=== PATIENT | female | born 1965 | race Caucasian/White ===

== ENCOUNTER 2022-10-27 13:17 | Outpatient (CLI) | payer OTHER, SELFPAY ==
[2022-10-27 15:12] LABS: INR 0.88 (0.91-1.10); Prothrombin Time 12.5 Seconds
[2022-10-27 15:13] LABS: Partial Thromboplastin Time* 28 Seconds (23-33)
[2022-10-27 15:20] LABS: Cholesterol* 256 mg/dL (90-199)
[2022-10-27 15:21] LABS: Glucose* 82 mg/dL (60-115); HDL Cholesterol* 100 mg/dL (>=50)
[2022-10-27 15:27] LABS: LDL Cholesterol Calculated 119 mg/dL (<100); Triglycerides* 183 mg/dL (40-149)
== END 2022-10-27 13:18 | disposition home or self-care (01) ==
LOC: NFLDREF 13:17
PROVIDERS: PCP Obstetrics & Gynecology; Visit Provider Obstetrics & Gynecology
DX: Z01.419 Encounter for gynecological examination (general) (routine) without abnormal findings (principal); Z13.1 Encounter for screening for diabetes mellitus; Z13.29 Encounter for screening for other suspected endocrine disorder; Z13.6 Encounter for screening for cardiovascular disorders
CPT/HCPCS: 80061; 82947; 84443; 85610; 85730

== ENCOUNTER 2023-01-02 10:57 | Emergency (ER) | payer OTHER, SELFPAY ==
[2023-01-02 11:15] VITALS: BP 105/58; PULSE 99; RESP 22; TEMP 36.9; O2SAT 98
--- NOTE | 2023-01-02 11:20 | ED.GENADULT ---
HPI - General Adult General Time Seen by Provider: 11:20 Date Seen: 01/02/23 Chief complaint: Nausea/Vomiting Stated complaint: Fell unconscious, dehydration Time Seen by Provider: 01/02/23 11:19 Source: patient, RN notes reviewed and old records reviewed Mode of arrival: ambulatory Limitations: no limitations History of Present Illness HPI narrative: Maida is a 57-year-old female coming in with nausea vomiting diarrhea, probable vasovagal episode overnight. She notes she did not feel well yesterday afternoon, actually took a nap before dinner. After dinner just again was not feeling very well, achy. She initially talk Johny turned, started to develop nausea vomiting diarrhea overnight. At 1 point overnight, was on the toilet having diarrhea and throwing up at the same time when her heard her hit the floor. She hit the right side of her face, had a bit of a fat lip from hitting the floor. Denies her teeth malocclusion. Is feeling extremely dizzy attempting to get up. She is not on any blood thinner. There has been no blood in the vomit or stool. One of her grand children has been sick. She has hot flashes overnight but states she felt hot and cold. Her Duncan woke her up on the bathroom floor, she remembers being irritated at him for waking her up in bed. Then she realized she was cold on the bathroom floor. If she moves the nausea feels worse, she is not vertiginous, has had a history of vertigo. She is achy in her back like muscle aches. She states she has not felt this sick since she was in sepsis when she was age 26. Was too sick to take her medications this morning. Review of her blood pressure from a visit in October was 102/70. She states her stomach symptoms seem to come in waves. Related Data Home Medications Medication Instructions Recorded Confirmed Lactobacills gasseri-Bifidobac cap PO QDAY 10/27/22 10/27/22 bifidum,longum 1.5 billion cell capsule ([employer]) cholecalciferol (vitamin D3) 25 25 mcg PO QDAY 10/27/22 10/27/22 mcg (1,000 unit) capsule epinephrine 0.3 mg/0.3 mL 0.3 mg IM ONCE 10/27/22 10/27/22 injection, auto-injector lorazepam 0.5 mg tablet 0.5 mg PO .Daily as needed PRN 10/27/22 10/27/22 multivitamin with iron 1 tab PO QDAY 10/27/22 10/27/22 omega-3 fatty acids 1,000 mg 1,000 mg PO QDAY 10/27/22 10/27/22 capsule Previous Rx's Medication Instructions Recorded buspirone 7.5 mg tablet 7.5 mg PO DAILY #90 tabs 10/27/22 estradiol 1 mg tablet 1 mg PO DAILY #90 tabs 10/27/22 progesterone micronized 100 mg 100 mg PO .Bedtime #90 caps 10/27/22 capsule ondansetron 4 mg disintegrating 4 mg PO Q6H PRN nausea and 01/02/23 tablet vomiting #20 tabs Allergies Allergy/AdvReac Type Severity Reaction Status Date / Time bee venom protein (honey bee) Allergy Severe Anaphylaxis Verified 10/27/22 13:34 Review of Systems Status of ROS: Reports: 10 or more systems reviewed and unremarkable except as noted in History and below [facility] Medical History Anxiety and depression ?F41.9 - Anxiety disorder, unspecified (ICD-10) ?F32.A - Depression, unspecified (ICD-10) DDD (degenerative disc disease) Fracture of phalanx of finger of right hand (12/14/20) ?S62.609A - Fracture of unspecified phalanx of unspecified finger, initial encounter for closed fracture (ICD-10) History of atrial fibrillation ?Z86.79 - Personal history of other diseases of the circulatory system (ICD-10) History of ecchymosis ?Z87.898 - Personal history of other specified conditions (ICD-10) History of vertebral compression fracture (~11/2013) ?Z87.81 - Personal history of (healed) traumatic fracture (ICD-10) On postmenopausal hormone replacement therapy ?Z79.890 - Hormone replacement therapy (ICD-10) UTI (urinary tract infection) (10/15/22) ?N39.0 - Urinary tract infection, site not specified (ICD-10) Surgical History History of 2 sections ?Z98.891 - History of uterine scar from previous surgery (ICD-10) History of arthroscopy of left knee (02/01/08) ?Z98.890 - Other specified postprocedural states (ICD-10) History of cardiac radiofrequency ablation (11/2016) ?Z98.890 - Other specified postprocedural states (ICD-10) History of colonoscopy (08/17/21) ?Z98.890 - Other specified postprocedural states (ICD-10) History of dilation and curettage (05/01/89) ?Z98.890 - Other specified postprocedural states (ICD-10) History of hand surgery (04/29/14) ?Z98.890 - Other specified postprocedural states (ICD-10) History of third molar tooth extraction (1984) ?K08.409 - Partial loss of teeth, unspecified cause, unspecified class (ICD-10) Family History Sister Down's syndrome Father Atrial fibrillation Hodgkin lymphoma High blood pressure Diabetes Heart disease Paternal Grandmother Stroke Paternal Grandfather Stomach cancer Alcohol dependence Mother High cholesterol Anxiety Depression Alcohol dependence Thyroid disease Maternal Grandmother High cholesterol Macular degeneration Brother Anxiety Depression Daughter Anxiety Daughter Anxiety Maternal Grandfather Heart disease Social History Narrative: Cis-gender, heterosexual woman Relationship status: . Spouse/Partner: Duncan Education: MD Occupation: Physician Tobacco: Lifetime nonsmoker E-cigarettes: No Alcohol: Yes: 1-2 servings/month Illicit/recreational drugs: No Safety concerns at home or work: No Dietary restriction(s): No Exercise: Yes, 1-2 times per week urination of cardio and weights Children: Nalini Araujo (Nando): Mario Ontiveros, expecting 03/2023, Lory (Josh). Smoking Status: Never smoker Do you use any of these nicotine containing products: None Second hand tobacco smoke exposure: No How often do you have a drink containing alcohol: monthly or less AUDIT-C Alcohol total score: 1 Non-prescribed substance use: denies use Little interest or pleasure in doing things: not at all Feeling down, depressed, or hopeless: not at all Exam Const: Vital Signs, click to edit/add: Vital Signs - 24 hr 01/02/23 11:15 01/02/23 11:23 Temperature 98.5 F Pulse Rate [Right Pulse Oximeter] 99 Respiratory Rate 22 Blood Pressure [Ri ght Upper Arm] 105/58 L Pulse Oximetry 98 100 Oxygen Delivery Me thod Room Air Documenting provider has reviewed patient's vital signs: yes Common normals: average body habitus, oriented x3, no limitations and alert General appearance: cooperative, well kempt, well developed and ill appearing Other: Maida is very pleasant 57-year-old female that is conversive, looks like she does not feel well however. HENMT: Common normals: normocephalic, head/scalp atraumatic, hearing grossly normal bilaterally, external nose normal, moist oral mucous membranes, oropharynx normal, dentition normal and gingiva normal Head and scalp: normocephalic and atraumatic Nose: external nose normal Eye: Common normals: EOMs intact bilaterally, conjunctivae normal and no scleral icterus Conjunctiva: conjunctiva(e) normal Other: Has right eye coloboma. Neck & C-Spine: Common normals: full ROM, no lymphadenopathy, supple, no meningeal signs and no JVD Resp: Common normals: normal respiratory effort, no retractions, no use of accessory muscles and clear to auscultation bilaterally Auscultation: clear to auscultation bilaterally Cardio: Common normals: no JVD, regular rate, regular rhythm, S1 normal heart sound, S2 normal heart sound, no gallops, no clicks and no murmurs Rate: regular rate Rhythm: regular rhythm Heart sounds: S1 normal and S2 normal GI: Common normals: Normal to inspection, nondistended, normoactive bowel sounds present, soft to palpation, non-tender, no hepatosplenomegaly and no masses Palpation: soft and no hepatosplenomegaly Neuro: Common normals: oriented x3 Sensorium/orientation: alert Meningeal signs: no meningeal signs Psych: Appearance: well kempt Course Course Hospital Course: This certainly sounds like a significant gastroenteritis but will consider other infectious etiologies. Will do a COVID. She will be on cardiac monitoring pulse oximetry, obtain EKG. Will initiate a L of IV fluids, 4 mg IV Zofran. Do not think she needs any imaging outside of head CT at this time. Reevaluation(s) Reevaluation #1: Recheck done Maida, provided a copy of her head CT. Reviewed that they did see some mild atherosclerotic change in the carotids, recommended a follow-up outpatient carotid ultrasound at some point. She is having a bit of a headache, nausea is improved. Still having body aches. We will try 15 mg IV Toradol. Have reviewed normal lactate, normal white blood count. Lab was in there getting a 2nd blood culture but I doubt that this is sepsis or bacterial. Time: 12:47 Reevaluation #2: Maida is feeling better, still feels ill with this but better. She had a large urine output. She would like to go home, does need more Zofran at home. Time: 14:21 Vital Signs Vital signs: Initial Vital Signs Temperature 98.5 F 01/02/23 11:15 Temperature Source Temporal Artery Scan 01/02/23 11:15 Pulse Rate 99 01/02/23 11:15 Pulse Rhythm Regular 01/02/23 11:15 Pulse Strength 3+ Normal 01/02/23 11:15 Respiratory Rate 22 01/02/23 11:15 Blood Pressure 105/58 L 01/02/23 11:15 Blood Pressure Mean 73 01/02/23 11:15 Blood Pressure Position Supine 01/02/23 11:15 Pulse Oximetry 98 01/02/23 11:15 Oxygen Delivery Method Room Air 01/02/23 11:15 Vital Signs Temperature 98.5 F 01/02/23 11:15 Pulse Rate 99 01/02/23 11:15 Respiratory Rate 22 01/02/23 11:15 Blood Pressure 105/58 L 01/02/23 11:15 Pulse Oximetry 98 01/02/23 11:15 Oxygen Delivery Method Room Air 01/02/23 11:15 Temperature 98.5 F 01/02/23 11:15 Pulse Rate 99 01/02/23 11:15 Respiratory Rate 22 01/02/23 11:15 Blood Pressure 105/58 L 01/02/23 11:15 Pulse Oximetry 100 01/02/23 11:23 Oxygen Delivery Method Room Air 01/02/23 11:15 Medical Decision Making Lab Data Lab results reviewed: Yes I reviewed the patient's lab results Labs: Lab Results 01/02/23 01/02/23 Range/Units 11:23 11:37 WBC 8.84 (4.50-11.00) K/uL RBC 4.79 (4.00-5.20) m/uL Hgb 14.8 (12.0-16.0) gm/dL Hct 44.4 (33.0-51.0) % MCV 93 (80-100) fL MCH 31 (26-34) pg MCHC 33 (32-36) gm/dL Plt Count 257 (140-440) K/uL Neut % (Auto) 93.6 H (42.0-72.0) % Lymph % (Auto) 3.7 L (20-44) % [place] % (Auto) 2.4 (0.0-11.0) % Eos % (Auto) 0.1 (0.0-7.0) % Baso % (Auto) 0.1 (0.0-3.0) % Neut # (Auto) 8.30 H (1.7-7.0) K/uL Lymph # (Auto) 0.30 L (0.90-2.90) K/uL [place] # (Auto) 0.20 (0.00-0.90) K/UL Eos # (Auto) 0.00 (0.00-0.50) K/uL Baso # (Auto) 0.00 (0.00-0.30) K/uL ESR 5 (2-20) mm/hr Sodium 137 (135-149) mmol/L Potassium 3.9 (3.6-5.1) mmol/L Chloride 107 (96-114) mmol/L Carbon Dioxide 24 (20-32) mmol/L BUN 19 (7-30) mg/dL Creatinine 0.7 (0.5-1.5) mg/dL Estimated GFR 100 ml/min Glucose 120 H (60-115) mg/dL Lactate 1.4 (0.5-1.9) mmol/L Calcium 8.7 (8.4-10.6) mg/dL Total Bilirubin 0.6 (0.1-1.5) mg/dL AST 31 (12-35) U/L ALT 25 (4-35) U/L Alkaline Phosphatase 66 (40-150) U/L C-Reactive Protein 1.1 H (0.5-1.0) mg/dL Total Protein 7.5 (6.0-8.3) g/dL Albumin 4.2 (3.3-5.0) g/dL SARS-CoV-2 (PCR) Negative SARS-CoV-2 (Negative) Imaging Data CT scan - head: Attestation: I have reviewed the pertinent imaging results. Radiologist's impression: Patient: STEFANI SANDOVAL Facility:?[facility] Patient ID:?[id number] Site Patient ID:?[id number]. Site :?1965 Study:?CT Head WITHOUT-01/02/2023 11:58:07 AM Ordering Physician:?Poncho Moore Final Report: INDICATION: Fall. Loss of consciousness. TECHNIQUE: Noncontrast CT images acquired through the brain. COMPARISON: None. FINDINGS: The ventricles and sulci are within normal limits for patient age. No mass effect or midline shift. The villafana-white differentiation is maintained. No acute intracranial hemorrhage or pathologic extra-axial fluid collection. Mild atherosclerotic calcifications in the carotid siphons. The globes are symmetric. Circumscribed, calcified 1.3 cm lesion within the left parietal scalp, potentially representing an epidermal inclusion cyst. The calvarium is intact. Minimal right sphenoid sinus mucosal thickening. The mastoid air cells are clear. IMPRESSION: No acute intracranial hemorrhage or mass effect. Please note that all CT scans at this facility use dose modulation, iterative reconstruction, and/or weight-based dosing when appropriate to reduce radiation dose to as low as reasonably achievable. Dictated by Thor Simeon MD @ 01/02/2023 12:19:18 PM (Electronic Signature) ECG Data Attestation: I personally reviewed and interpreted this ECG as follows: (Sinus rhythm, 83 beats per minute. No ischemic change, no arrhythmia. QT corrected 458 milliseconds.) Prior ECG tracings: not available for review Critical Care Time Critical Care Time Critical Care Time: No Discharge Plan Discharge Clinical Impression: Gastroenteritis Patient Disposition: Home, Self-Care Condition: Improved Instructions: Gastroenteritis (ED) Additional Instructions: Take small frequent sips of fluids to stay hydrated. Can use Zofran for any recurrent nausea or vomiting to allow you to drink fluids. Advance diet as tolerated back to solids as you feel able to. If you are not improving in the next 24-48 hours or if you have concerns of worsening at any point, do recommend re-evaluation. Activity Level: Activity as Tolerated Prescriptions: New ondansetron 4 mg tablet,disintegrating 4 mg PO Q6H PRN (Reason: nausea and vomiting) Qty: 20 0RF No Action omega-3 fatty acids 1,000 mg capsule 1,000 mg PO QDAY multivitamin with iron Tablet 1 tab PO QDAY [employer] 1.5 billion cell capsule PO QDAY lorazepam 0.5 mg tablet 0.5 mg PO .Daily as needed PRN epinephrine 0.3 mg/0.3 mL auto-injector 0.3 mg IM ONCE cholecalciferol (vitamin D3) 25 mcg (1,000 unit) capsule 25 mcg PO QDAY buspirone 7.5 mg tablet 7.5 mg PO DAILY Qty: 90 4RF estradiol 1 mg tablet 1 mg PO DAILY Qty: 90 4RF progesterone micronized 100 mg capsule 100 mg PO .Bedtime Qty: 90 4RF Follow Up/Referrals: Vinita Naranjo MD [Primary Care Provider] - Stand Alone Forms: [facility] Info Instructions
[2023-01-02 11:23] VITALS: O2SAT 100
--- NOTE | 2023-01-02 11:29 | CRLHL7_ITS ---
For Patients: As a result of the Century Cures Act, medical imaging exams and procedure reports are released immediately into your electronic medical record. You may view this report before your referring provider. If you have questions, please contact your health care provider. INDICATION: Fall. Loss of consciousness. TECHNIQUE: Noncontrast CT images acquired through the brain. COMPARISON: None. FINDINGS: The ventricles and sulci are within normal limits for patient age. No mass effect or midline shift. The villafana-white differentiation is maintained. No acute intracranial hemorrhage or pathologic extra-axial fluid collection. Mild atherosclerotic calcifications in the carotid siphons. The globes are symmetric. Circumscribed, calcified 1.3 cm lesion within the left parietal scalp, potentially representing an epidermal inclusion cyst. The calvarium is intact. Minimal right sphenoid sinus mucosal thickening. The mastoid air cells are clear. IMPRESSION: No acute intracranial hemorrhage or mass effect. Please note that all CT scans at this facility use dose modulation, iterative reconstruction, and/or weight-based dosing when appropriate to reduce radiation dose to as low as reasonably achievable. Dictated by Thor Simeon MD @ 01/02/2023 12:19:18 PM (Electronically Signed)
[2023-01-02] MEDS: ONDANSETRON 2 MG/ML inj 4 MG IVP (11:32)
[2023-01-02] MEDS: 0.9 % SODIUM CHLORIDE 1000 ml 1,000 ML IV (11:35)
[2023-01-02 11:39] LABS: Lactate* 1.4 mmol/L (0.5-1.9)
[2023-01-02 11:51] LABS: Basophils Percent Auto 0.1 % (0.0-3.0); Eosinophils Percent Auto 0.1 % (0.0-7.0); Hematocrit 44.4 % (33.0-51.0); Hemoglobin* 14.8 gm/dL (12.0-16.0); Immature Granulocytes Pct Auto 0.1 %; Lymphocytes Percent Auto 3.7 % (20-44); Mean Corpuscular HGB Conc 33 gm/dL (32-36); Mean Corpuscular Hemoglobin 31 pg (26-34); Mean Corpuscular Volume 93 fL (80-100); Monocytes Percent Auto 2.4 % (0.0-11.0); Neutrophils Percent Auto 93.6 % (42.0-72.0); Platelet Count* 257 K/uL (140-440); Red Blood Count 4.79 m/uL (4.00-5.20); White Blood Count* 8.84 K/uL (4.50-11.00)
[2023-01-02 11:52] LABS: Slide Review Reflex No
[2023-01-02 12:05] LABS: Albumin* 4.2 g/dL (3.3-5.0); Chloride* 107 mmol/L (96-114); Potassium* 3.9 mmol/L (3.6-5.1); Sodium* 137 mmol/L (135-149)
[2023-01-02 12:08] LABS: Alanine Aminotransferase* 25 U/L (4-35); Alkaline Phosphatase* 66 U/L (40-150); Aspartate Amino Transferase* 31 U/L (12-35); Bilirubin Total* 0.6 mg/dL (0.1-1.5); Blood Urea Nitrogen* 19 mg/dL (7-30); Carbon Dioxide* 24 mmol/L (20-32); Creatinine* 0.7 mg/dL (0.5-1.5); Estimated Glomerular Filt Rate 100 ml/min; Glucose* 120 mg/dL (60-115); Total Protein* 7.5 g/dL (6.0-8.3)
[2023-01-02 12:09] LABS: Calcium* 8.7 mg/dL (8.4-10.6)
[2023-01-02 12:11] LABS: C Reactive Protein* 1.1 mg/dL (0.5-1.0)
[2023-01-02 12:20] LABS: SARS PCR* Negative SARS-CoV-2 (Negative)
[2023-01-02 12:26] VITALS: BP 106/41; PULSE 86; RESP 18; O2SAT 100
[2023-01-02 12:33] LABS: Erythrocyte SedimentationRate* 5 mm/hr (2-20)
[2023-01-02] MEDS: LACTATED RINGERS 1000 ML 1,000 ML IV (12:51)
[2023-01-02 13:00] VITALS: BP 94/49; PULSE 86; RESP 14; O2SAT 100
[2023-01-02] MEDS: KETOROLAC 15 MG/ML inj IVP (13:20)
[2023-01-02 14:27] VITALS: BP 95/53; PULSE 95; RESP 18; O2SAT 97
== END 2023-01-02 14:39 | disposition home or self-care (01) ==
PROVIDERS: Emergency Provider Family Medicine; PCP Obstetrics & Gynecology
DX: K52.9 Noninfective gastroenteritis and colitis, unspecified (principal)
CPT/HCPCS: 36415; 70450; 80053; 83605; 85025; 85651; 86140; 87040; 87635; 93005; 94761; 96374; 96375; 99284; 99285; J1885; J2405; J7030; J7120

== ENCOUNTER 2023-01-06 14:55 | Outpatient (CLI) | payer OTHER, SELFPAY ==
--- NOTE | 2023-01-06 15:00 | CRLHL7_ITS ---
For Patients: As a result of the Cures Act, medical imaging exams and procedure reports are released immediately into your electronic medical record. You may view this report before your referring provider. If you have questions, please contact your health care provider. BILATERAL SCREENING MAMMOGRAM WITH COMPUTER-AIDED DETECTION AND TOMOSYNTHESIS TECHNIQUE: CC and MLO views were obtained. These mammographic images have been obtained using full-field digital technique. These mammographic images were interpreted with the benefit of computer-aided detection. Breast Tomosynthesis was used in this interpretation. COMPARISON FILM: 05/21/21, 12/18/17, 12/08/16. FINDINGS: There are scattered areas of fibroglandular density IMPRESSION: There is no radiographic evidence for malignancy. ASSESSMENT: BI-RADS Category 2: Benign RECOMMENDATION: Routine screening mammogram in 1 year. A lay language report of this examination will be provided to the patient. Heather Luo M.D. Diagnostic/Breast Radiologist [email or web address]/petar Transcribed: 2:09 p.huber davey/Dictated by: Heather Luo MD @ 01/09/2023 8:32:00 AM (Electronically Signed)
== END 2023-01-06 14:56 | disposition home or self-care (01) ==
LOC: MAMMO 14:56
PROVIDERS: PCP Obstetrics & Gynecology; Visit Provider Obstetrics & Gynecology
DX: Z12.31 Encounter for screening mammogram for malignant neoplasm of breast (principal)
CPT/HCPCS: 77063; 77067

== ENCOUNTER 2023-12-19 12:55 | Outpatient (CLI) | payer OTHER, SELFPAY ==
--- NOTE | 2023-12-19 13:00 | US_ITS ---
Patient: STEFANI SANDOVAL Facility:?[facility] Patient ID:?[id number] Site Patient ID:?[id number]. Site :?1965 Study:?US-Neck Angio Bilateral CAROTID-12/19/2023 1:48:35 PM Ordering Physician:?LIZBET COLEMAN Final Report: BILATERAL CAROTID ULTRASOUND, 12/19/2023 INDICATION: Occlusion and stenosis of unspecified carotid artery. TECHNIQUE: The carotid circulations and the vertebral arteries in the neck were examined with villafana-scale ultrasound, color-flow and Doppler spectral analysis. Degrees of stenosis were determined using SRU 2002 Consensus Panel Criteria. COMPARISON: None. FINDINGS: Mild intimal thickening in the carotid arteries. Normal ICA velocities with no evidence of hemodynamically-significant stenosis. Both vertebral arteries are patent with antegrade flow. Triphasic waveforms in the subclavian arteries. RIGHT: PEAK SYSTOLIC VELOCITY Subclavian Artery: 116 Distal CCA: 109/38 Mid CCA: 100/30 Proximal ICA: 98/38 Mid ICA: 70/24 Distal ICA: 66/34 ICA/CCA Ratio: 0.9 Vertebral Artery: Antegrade, 44/15 LEFT: PEAK SYSTOLIC VELOCITY Subclavian Artery: 153 Distal CCA: 109/39 Mid CCA: 129/35 Proximal ICA: 99/28 Mid ICA: 114/44 Distal ICA: 67/21 ICA/CCA Ratio: 0.9 Vertebral Artery: Antegrade, 55/18 IMPRESSION: No evidence for hemodynamically-significant carotid stenosis. ZAIN CHAMPION M.D. Body/Diagnostic Radiologist [email or web address]:[email or web address] D& Transcribed: 11:[address]/Dictated by: Zain Champion MD @ 12/20/2023 9:53:00 AM Signed by:Ana Rosa Champion MD @12/20/2023 12:26:47 PM (Electronic Signature)
== END 2023-12-19 12:56 | disposition home or self-care (01) ==
LOC: US 12:56
PROVIDERS: PCP Internal Medicine; Visit Provider Internal Medicine
DX: I65.29 Occlusion and stenosis of unspecified carotid artery (principal)
CPT/HCPCS: 93880

== ENCOUNTER 2025-09-15 02:31 | Emergency (ER) | payer OTHER, SELFPAY ==
--- OUTSIDE RECORDS SUMMARY | 2025-09-15 02:34 | XMS_ITS | Clinical Summary ---
Author Organization [facility] Address [address] [place] [id number] Care Team Providers Care Gear Setter Name Role Phone Alli Reyes MD Primary Care Provider Allergies No known active allergies Medications MedicationSigDispense QuantityRefillsLast FilledStart DateEnd DateStatus multivitamin (MVI) tablet Take 1 tablet by mouth once daily.Active magnesium 250 mg tab Take 1 tablet by mouth once daily.Active L. gasseri-B. bifidum-B longum 1.5 billion cell cap Take 1 capsule by mouth once daily.Active Zqkci-5-LVQ-EPA-Fish Oil (FISH OIL) 1,000 mg (120 mg-180 mg) cap Take 1,000 mg by mouth once daily.Active busPIRone 7.5 mg tablet Take 1 tablet by mouth 2 times daily.Active estradioL (ESTRACE) 1 mg tablet Take 1 tablet by mouth once daily.Active Active Problems ProblemNoted DateDiagnosed DateAtrial qsrbamrzgken42/24/2017 Overview (11/25/2016): S/P atrial fibrillation ablation 11/25/2016 PericarditisFluid retention Social History Tobacco UseTypesPacks/DayYears UsedDateSmoking Tobacco: NeverSmokeless Tobacco: NeverAlcohol UseStandard Drinks/WeekCommentsYes0 (1 standard drink = 0.6 oz pure alcohol)socially, rareSocial ConnectionsAnswerDate RecordedFrequency of Communication with Friends and FamilyNot on file09/18/2021Financial Resource StrainAnswerDate RecordedDifficulty of Paying Living ExpensesNot on file 2Difficulty of Paying Living ExpensesNot on file0101/2022 CommentsUnknownSex and Gender InformationValueDate RecordedSex Assigned at Not on fileLegal FeyOdnwgh42/14/2013 6:28 AM CSTGender IdentityNot on fileSexual OrientationNot on file Last Filed Vital Signs Vital SignReadingTime TakenCommentsBlood Buoyldnd834/6406 8:59 AM CDT Vpdhy1276 8:59 AM XBELdswqfzebfv33.8 ??C (98.2 ??F)12/30/2016 8:49 AM CDTRespiratory Ivjk804512/30/2016 8:49 AM CDTOxygen Wwbujedwwn42%02/16/2017 8:59 AM CDTInhaled Oxygen Concentration--Yjrlqp54.8 kg (156 lb)02/16/2017 8:59 AM CDT Bpklku218.6 cm (5' 6)02/16/2017 8:59 AM CDTBody Mass Index25.18002/16/2017 8:59 AM CDT Plan of Treatment Health MaintenanceDue DateLast DoneCommentsTetanus sptmrss3706/30/1975Depression screening for age 12+1976HIV for age 15-Hepatitis C screening for age 18-Mammogram for age 40-Colonoscopy through age 7506/30/2009Lipids for age 45-7506/30/2009Pneumococcal series for age 50+ (1 of 1 - PCV)2014Zoster (shingles) series for age 50+ (1 of 2)2014MI (ht and wt on same day) for age 18+, 01/19/2017, 12/29/2016, Additional history existsCOVID-19 vaccine series ( - 2024- season)2025 Influenza Vaccine (#1)2025Pap test for age 21-6502//779775/05/2023, 10/27/2022, 05/21/2021, Additional history existsRSV vaccine for adults or (1 - 1-dose 75+ series)2039Hepatitis B series for 19+Aged OutNo longer eligible based on patient's age to complete this topic Procedures Procedure NamePriorityDate/TimeAssociated DiagnosisCommentsHPV HIGH RISKRoutine 10/27/2022 12:00 PM [employer] from Last 3 Months or Most Recently Relevant to Health Maintenance Results * HPV HIGH RISK (10/27/2022 12:00 PM [employer])ComponentValueRef RangeTest Method Analysis TimePerformed AtPathologist SignatureTYPE 16NegativeNegative 11/01/2022 2:01 PM [facility]TYPE 18 DgmecqhwFaohnxrb76/14/2023 2:01 PM [facility]ORYOTHER HIGH RISK HFHPEBhesyrjbDsdflagw93/14/2023 2:01 PM [facility]ORATORYSpecimen (Source)Anatomical Location / LateralityCollection Method / VolumeCollection TimeReceived TimeOther (Cervical)10/27/2022 12:00 PM CST10/31/2022 8:31 AM [employer] Narrative [facility] - 11/01/2022 2:01 PM [employer] HPV types 16, 18, 31, 33, 35, 39, 45, 51, 52, 56, 58, 59, 66 and 68 DNA were undetectable or below the pre-set threshold. Methodology: [place] Deysi 4800 HPV Test Authorizing ProviderResult TypeResult StatusNicole Julia Naranjo MD MICROBIOLOGYFinal ResultPerforming OrganizationAddressCity/State/ZIP CodePhone Number [facility] [address] [place] [address], from Last 3 Months or Most Recently Relevant to Health Maintenance Advance Directives * Full Code (Latest Code Status on File) Date ActivatedDate InactivatedComments12/29/2016 11:25 AM12/30/2016 5:36 PM * Full Code Date ActivatedDate InactivatedComments11/25/2016 6:42 AM11/26/2016 11:28 AM Care Teams Team MemberRelationshipSpecialtyStart DateEnd Date Alli Reyes MD [address] [place] [address] PCP - GeneralEmergency [facility]10/10/16
--- NOTE | 2025-09-15 02:37 | ED.GENADULT ---
HPI - General Adult General Time Seen by Provider: 02:37 Date Seen: 09/15/25 Chief complaint: Cough Stated complaint: Congestion, cough, fever Time Seen by Provider: 09/15/25 02:37 Source: patient Mode of arrival: ambulatory Limitations: no limitations History of Present Illness HPI narrative: 60-year-old female who comes in today with upper respiratory symptoms including cough, runny nose, fever. She has been battling upper respiratory symptoms for couple weeks and various forms, nasal congestion and cough initially followed by some sinus pressure, headache. Was started on Augmentin 5 days ago, felt like she improved briefly but then started getting sick again. Known recent exposure to influenza A. Complaining of body aches, headache, fever, fast heart rate, shortness of breath. Took Tylenol about 90 minutes prior to coming the emergency department. She is concerned about pneumonia or influenza. Related Data Home Medications ?Medication ?Instructions ?Recorded ?Confirmed Lactobacills gasseri-Bifidobac cap PO QDAY 10/27/22 09/10/25 bifidum,longum 1.5 billion cell capsule ([employer]) cholecalciferol (vitamin D3) 25 25 mcg PO QDAY 10/27/22 09/15/25 mcg (1,000 unit) capsule lorazepam 0.5 mg tablet 0.5 mg PO .Daily as needed PRN 10/27/22 09/15/25 multivitamin with iron 1 tab PO QDAY 10/27/22 09/15/25 omega-3 fatty acids 1,000 mg 1,000 mg PO QDAY 10/27/22 09/15/25 capsule Previous Rx's ?Medication ?Instructions ?Recorded valacyclovir 1 gram tablet 1,000 mg PO BID PRN outbreak #30 01/14/23 (Valtrex) tabs estradiol 1 mg tablet 1 mg PO DAILY #90 ea 06/17/25 progesterone micronized 100 mg 100 mg PO DAILY #90 ea 06/17/25 capsule amoxicillin 875 mg-potassium 1 tab PO BID 7 days #14 tabs 09/10/25 clavulanate 125 mg tablet Allergies Allergy/AdvReac Type Severity Reaction Status Date / Time bee venom protein (honey bee) Allergy Severe Anaphylaxis Verified 09/15/25 02:53 [facility] Medical History (Updated 09/15/25 @ 04:03 by Mateusz Cool MD) UTI (urinary tract infection) (10/15/22) ?N39.0 - Urinary tract infection, site not specified (ICD-10) History of atrial fibrillation ?Z86.79 - Personal history of other diseases of the circulatory system (ICD-10) Anxiety and depression ?F41.9 - Anxiety disorder, unspecified (ICD-10) ?F32.A - Depression, unspecified (ICD-10) History of ecchymosis ?Z87.898 - Personal history of other specified conditions (ICD-10) On postmenopausal hormone replacement therapy ?Z79.890 - Hormone replacement therapy (ICD-10) Fracture of phalanx of finger of right hand (12/14/20) ?S62.609A - Fracture of unspecified phalanx of unspecified finger, initial encounter for closed fracture (ICD-10) DDD (degenerative disc disease) History of vertebral compression fracture (~11/2013) ?Z87.81 - Personal history of (healed) traumatic fracture (ICD-10) Surgical History History of colonoscopy (08/17/21) ?Z98.890 - Other specified postprocedural states (ICD-10) History of cardiac radiofrequency ablation (11/2016) ?Z98.890 - Other specified postprocedural states (ICD-10) History of arthroscopy of left knee (02/01/08) ?Z98.890 - Other specified postprocedural states (ICD-10) History of third molar tooth extraction (1984) ?K08.409 - Partial loss of teeth, unspecified cause, unspecified class (ICD-10) History of dilation and curettage (05/01/89) ?Z98.890 - Other specified postprocedural states (ICD-10) History of 2 sections ?Z98.891 - History of uterine scar from previous surgery (ICD-10) History of hand surgery (04/29/14) ?Z98.890 - Other specified postprocedural states (ICD-10) Family History Sister Down's syndrome Father Atrial fibrillation Hodgkin lymphoma High blood pressure Diabetes Heart disease Paternal Grandmother Stroke Paternal Grandfather Stomach cancer Alcohol dependence Mother High cholesterol Anxiety Depression Alcohol dependence Thyroid disease Maternal Grandmother High cholesterol Macular degeneration Brother Anxiety Depression Daughter Anxiety Daughter Anxiety Maternal Grandfather Heart disease Social History Narrative: Cis-gender, heterosexual woman Relationship status: . Spouse/Partner: Duncan Education: MD Occupation: Physician Tobacco: Lifetime nonsmoker E-cigarettes: No Alcohol: Yes: 1-2 servings/month Illicit/recreational drugs: No Safety concerns at home or work: No Dietary restriction(s): No Exercise: Yes, 1-2 times per week urination of cardio and weights Children: Nalini Aruajo (Nando): Mario Ontiveros, emeterioing 03/2023, Lory (Josh). Smoking Status: Never smoker Do you use any of these nicotine containing products: None Second hand tobacco smoke exposure: No How often do you have a drink containing alcohol: monthly or less AUDIT-C Alcohol total score: 1 Non-prescribed substance use: denies use service: No Exam Narrative: Exam Narrative: General: Well-developed and well-nourished, no acute distress Head: Atraumatic and normocephalic Eyes: Pupils are equal reactive, extraocular motions intact, conjunctiva clear ENT: External nose and ears are normal, posterior pharynx without erythema or exudate Neck: No midline cervical tenderness, full spontaneous range of motion the neck, trachea midline, no adenopathy Heart: Tachycardic Lungs: Clear to auscultation bilaterally without wheezes or crackles Abdomen: Soft, nontender, nondistended with active bowel sounds Musculoskeletal: No tenderness, deformity, or edema Neurologic: Awake, alert, and oriented x3, no gross focal neurologic deficits, cranial nerves intact as tested Psych: Mood and affect are appropriate Skin: No rashes Const: Vital Signs, click to edit/add: Vital Signs - 24 hr 09/15/25 02:38 Temperature 99 F Pulse Rate [Right Pulse Oximeter] 118 H Respiratory Rate 31 H Blood Pressure [Ri ght Upper Arm] 105/74 Pulse Oximetry 94 Oxygen Delivery Me thod Room Air Course Course ED Course: Additional records reviewed: Urgent care visit from September 10 when patient was seen for 2 weeks of cold symptoms in sinus congestion, at that time patient was started on Augmentin. Additional history from: Spouse Care impacted by: Prior cardiac ablation Testing considered but not performed: See ED course Disposition:Home Patient presents today with spouse for upper respiratory symptoms that have been going on with waxing waning intensity for couple of weeks but much worse the last couple of days. Headache, body aches, fever, nausea. Has had a runny nose. Currently on Augmentin. On exam here, patient is tachycardic but afebrile, no hypoxia, no respiratory distress, lungs are clear. Suspect influenza, patient is concerned about possible pneumonia, clinically this is less likely with clear lungs and patient already on appropriate antibiotics for pneumonia, but x-rays ordered along with IV fluids for symptom management. Reevaluation(s) Time of Reevaluation #1: 03:52 Reevaluation #1: Labs independently interpreted by me Influenza A positive. Chest x-ray and panel interpreted by me negative for acute findings. Updated patient with finding plan, patient will be started on Tamiflu. Fluids and Toradol in the emergency department and plan for discharge. Time of Reevaluation #2: 04:17 Reevaluation #2: Labs independently interpreted by me with normal CBC. Time of Reevaluation #3: 04:36 Reevaluation #3: Labs independently interpreted by me with glucose 123, otherwise reassuring basic metabolic panel. Vital Signs Vital signs: Initial Vital Signs Temperature 99 F 09/15/25 02:38 Temperature Source Temporal Artery Scan 09/15/25 02:38 Pulse Rate 118 H 09/15/25 02:38 Pulse Rhythm Regular 09/15/25 02:38 Respiratory Rate 31 H 09/15/25 02:38 Blood Pressure 105/74 09/15/25 02:38 Blood Pressure Mean 84 09/15/25 02:38 Pulse Oximetry 94 09/15/25 02:38 Oxygen Delivery Method Room Air 09/15/25 02:38 Vital Signs Temperature 99 F 09/15/25 02:38 Pulse Rate 118 H 09/15/25 02:38 Respiratory Rate 31 H 09/15/25 02:38 Blood Pressure 105/74 09/15/25 02:38 Pulse Oximetry 94 09/15/25 02:38 Oxygen Delivery Method Room Air 09/15/25 02:38 Temperature 99 F 09/15/25 02:38 Pulse Rate 118 H 09/15/25 02:38 Respiratory Rate 31 H 09/15/25 02:38 Blood Pressure 105/74 09/15/25 02:38 Pulse Oximetry 94 09/15/25 02:38 Oxygen Delivery Method Room Air 09/15/25 02:38 Medications Administered Medications: Discontinued Medications Generic Name Dose Route Start Last Admin Trade Name Freq PRN Reason Stop Dose Admin Sodium Chloride 1,000 mls @ 1,000 mls/hr 09/15/25 03:30 09/15/25 04:03 0.9 % Sodium Chloride 1000 Ml IV 09/15/25 04:29 1,000 mls/hr .Q1H CHRISTY Administration Ketorolac Tromethamine 15 mg 09/15/25 04:02 09/15/25 04:11 Ketorolac 15 Mg/Ml Inj IVP 09/15/25 04:03 15 mg ONCE ONE Administration Medical Decision Making Lab Data Labs: Lab Results 09/15/25 09/15/25 Range/Units 02:46 04:00 WBC 7.19 (4.50-11.00) K/uL RBC 4.51 (4.00-5.20) m/uL Hgb 14.1 (12.0-16.0) gm/dL Hct 43.6 (33.0-51.0) % MCV 97 (80-100) fL MCH 31 (26-34) pg MCHC 32 (32-36) gm/dL RDW Coeff of Amish 12.5 (11.5-15.5) % Plt Count 265 (140-440) K/uL Neut % (Auto) 77.2 H (42.0-72.0) % Lymph % (Auto) 12.4 L (20-44) % Chambers % (Auto) 7.5 (0.0-11.0) % Eos % (Auto) 2.4 (0.0-7.0) % Baso % (Auto) 0.1 (0.0-3.0) % Neut # (Auto) 5.60 (1.7-7.0) K/uL Lymph # (Auto) 0.90 (0.90-2.90) K/uL Chambers # (Auto) 0.50 (0.00-0.90) K/UL Eos # (Auto) 0.17 (0.00-0.50) K/uL Baso # (Auto) 0.01 (0.00-0.30) K/uL Abs Immat Gran (auto) 0.03 (0.00-0.30) K/uL Imm/Tot Granulo (auto) 0.4 % Sodium 138 (135-149) mmol/L Potassium 4.3 (3.6-5.1) mmol/L Chloride 107 (96-114) mmol/L Carbon Dioxide 23 (20-32) mmol/L Anion Gap 8 (7-15) mEq/L BUN 14 (7-30) mg/dL Creatinine 0.8 (0.5-1.5) mg/dL Estimated Creat Clear 55.31 Estimated GFR 84 ml/min Glucose 123 H (60-115) mg/dL Calcium 9.3 (8.4-10.6) mg/dL SARS-CoV-2 (PCR) Negative SARS-CoV-2 (Negative) Influenza Type A (PCR) POSITIVE PCR FLU A A (Negative) Influenza Type B (PCR) Negative PCR FLU B (Negative) RSV (PCR) Negative PCR RSV (Negative) Discharge Plan Discharge Clinical Impression: Influenza A Patient Disposition: Home, Self-Care Condition: Stable Instructions: Influenza (DC) Additional Instructions: Continue Tylenol and ibuprofen as needed for fever and body aches Take [id number] decongestant and cough Activity Level: Activity as Tolerated Prescriptions: No Action omega-3 fatty acids 1,000 mg capsule 1,000 mg PO QDAY multivitamin with iron Tablet 1 tab PO QDAY [employer] 1.5 billion cell capsule PO QDAY lorazepam 0.5 mg tablet 0.5 mg PO .Daily as needed PRN cholecalciferol (vitamin D3) 25 mcg (1,000 unit) capsule 25 mcg PO QDAY amoxicillin-pot clavulanate 875-125 mg tablet 1 tab PO BID 7 Days Qty: 14 0RF valacyclovir [Valtrex] 1 gram tablet 1,000 mg PO BID PRN (Reason: outbreak) Qty: 30 6RF estradiol 1 mg tablet 1 mg PO DAILY Qty: 90 3RF progesterone micronized 100 mg capsule 100 mg PO DAILY Qty: 90 3RF Follow Up/Referrals: Alli Reyes MD [Primary Care Provider, Internal Medicine] Stand Alone Forms: [facility] Info Instructions
[2025-09-15 02:38] VITALS: BP 105/74; PULSE 118; RESP 31; TEMP 37.2; O2SAT 94; BMI 26.6
--- NOTE | 2025-09-15 03:28 | CRLHL7_ITS ---
For Patients: As a result of the Cures Act, medical imaging exams and procedure reports are released immediately into your electronic medical record. You may view this report before your referring provider. If you have questions, please contact your health care provider. INDICATION: Fever and cough. TECHNIQUE: Chest 2 views. COMPARISON: None. FINDINGS: Cardiovascular and mediastinum: Heart size is normal. Unremarkable mediastinum. Lungs and pleural spaces: Lungs are clear. No sign of infiltrate or mass. No sign of pleural effusion. No pneumothorax. Bones and soft tissues: No significant findings. IMPRESSION: No acute cardiopulmonary abnormality. Dictated by Osvaldo Belcher MD @ 09/15/2025 3:58:41 AM (Electronically Signed)
[2025-09-15 03:49] LABS: PCR FLU A POSITIVE PCR FLU A (Negative); PCR FLU B Negative PCR FLU B (Negative); PCR RSV Negative PCR RSV (Negative); SARS PCR* Negative SARS-CoV-2 (Negative)
[2025-09-15 04:12] LABS: Hematocrit* 43.6 % (33.0-51.0); Hemoglobin* 14.1 gm/dL (12.0-16.0); Immature Granulocytes Abs Auto 0.03 K/uL (0.00-0.30); Immature Granulocytes Pct Auto 0.4 %; Mean Corpuscular HGB Conc 32 gm/dL (32-36); Mean Corpuscular Hemoglobin 31 pg (26-34); Mean Corpuscular Volume 97 fL (80-100); RDW Coefficient of Variation % 12.5 % (11.5-15.5); Red Blood Count* 4.51 m/uL (4.00-5.20); White Blood Count* 7.19 K/uL (4.50-11.00)
[2025-09-15 04:14] LABS: Lymphocytes Absolute Auto 0.90 K/uL (0.90-2.90); Slide Review Reflex No
[2025-09-15 04:24] LABS: Chloride* 107 mmol/L (96-114); Potassium* 4.3 mmol/L (3.6-5.1); Sodium* 138 mmol/L (135-149)
[2025-09-15 04:27] LABS: Anion Gap 8 mEq/L (7-15); Blood Urea Nitrogen* 14 mg/dL (7-30); Calcium* 9.3 mg/dL (8.4-10.6); Carbon Dioxide* 23 mmol/L (20-32); Creatinine* 0.8 mg/dL (0.5-1.5); Est. Creatinine Clearance* 55.31; Estimated Glomerular Filt Rate 84 ml/min; Glucose* 123 mg/dL (60-115)
== END 2025-09-15 05:10 | disposition home or self-care (01) ==
PROVIDERS: Emergency Provider Family Medicine; PCP Internal Medicine
DX: J10.1 Influenza due to other identified influenza virus with other respiratory manifestations (principal)
CPT/HCPCS: 36415; 71046; 80048; 85025; 87631; 96374; 99283; 99284; J1885; J7030